=== PATIENT | male | born 1990 | race African-American/Black ===

== ENCOUNTER 2019-02-13 06:17 | Emergency (ER) | payer OTHER ==
[2019-02-13] MEDS: IBUPROFEN 800 MG TAB PO (06:37)
== END 2019-02-13 07:41 | disposition home or self-care (01) ==
LOC: E/R 06:17
DX: S80.811A Abrasion, right lower leg, initial encounter (principal); W54.0XXA Bitten by dog, initial encounter; Y92.9 Unspecified place or not applicable
CPT/HCPCS: 73590; 99283-25